=== PATIENT | male | born 1955 | race Caucasian/White ===

== ENCOUNTER 2022-10-01 11:24 | Inpatient (IN) ==
--- NOTE | 2022-10-01 12:04 | Emergency Department Note ---
Impression & Plan Elevated troponin I level, Coronary artery disease, Acute dyspnea, Heart palpitations ED Provider Note NAME: DASHAWN MORALES AGE: 67 SEX: M : 1955 ARRIVES VIA: Ambulance INFORMANT: Patient, ED PROVIDER(S): Arnaldo Vinson MD CHIEF COMPLAINT: Shortness of breath MEDICAL DECISION MAKING: Patient presents as an [employer] participant who did develop shortness of breath while ascending the second climb during the bike stage. IV was established blood was obtained and the patient did have a CK checked and was ordered IV fluids. The patient's blood work shows a normal white count 8 hemoglobin and platelet count. Kidney function is unremarkable. Initial troponin of 52. CK2 78 likely consistent with the patient's [employer] competition. COVID-negative. I did inform the patient of the findings. The patient was ordered the rest of a full dose aspirin as the patient did take aspirin this morning. The patient also lei s take Plavix. I did speak the on-call hospitalist service Dr. Hernandez and the patient was admitted to the medicine service. Patient has no acute symptoms at this time. Prior /Outside records reviewed: None Differential diagnosis: Reactive airway disease, pneumonia, pneumothorax, COPD, CHF, infections, cardiac ischemia, pulmonary embolism, dehydration among others were considered Diagnostics, as interpreted by me: ECG: Normal sinus rhythm, rate of 73, normal intervals, left axis deviation, T wave version in lead III no obvious ST elevations. Cardiac monitoring: An order was placed for continuous cardiac monitoring. The monitor shows a rate of 72 with sinus rhythm. Patient was placed on pulse oximetry Medical decision rules: HEART score Imaging studies: See below I informally reviewed the patient's chest x-ray which shows no obvious pneumothorax. HPI: Patient presents due to concern for shortness of breath. The patient was participating in the [employer] half today. The patient states that he was doing quite well but on the second climb of the bike portion which was greater than 35 miles in he did notice that his heart rate was elevated and did feel short of breath. Patient states that in total this lasted approximately 5 minutes in duration. Patient does have a known history of CAD status post stents states this does not feel similar to when this occurred. The patient denies any chest pains. The patient denies any nausea vomiting or diarrhea. The patient had completed a 1.1 mile swim as well as 35 mile bike prior to developing the shortness of breath. Patient denies any leg swelling or calf pain. The patient is from the [place] area but has been here for approximate 3 to 4 days. Patient denies any falls or trauma. Patient states that he decided to forego the rest of the race and then proceeded to get on his bike and returned it down the hill which he was climbing was brought to the emergency department. PAST MEDICAL HISTORY: CAD status post 3 stents Hypertension Hyperlipidemia PAST SURGICAL HISTORY: Status post coronary angioplasty Right shoulder rotator cuff repair SOCIAL HISTORY: Patient denies any alcohol tobacco or drug use. Patient does live in [place]. HOME MEDICATIONS: See Below ALLERGIES: See Below VITALS: See Below PHYSICAL EXAMINATION: GENERAL: NAD, non-toxic. EYE EXAM: Normal conjunctiva. PERRL, no anisocoria and EOM's grossly intact w/o pain. NECK: Supple, no nuchal rigidity, no adenopathy, non-tender. No signs of meningismus. FROM of the neck with good chin to chest and neck extension. No stridor. LUNGS: Clear to auscultation. Normal chest wall mechanics. HEART: NSR, no MRG. ABDOMEN: Abdomen soft, non-tender, no masses, no rebound or guarding. BACK: No CVA TTP. SKIN: No rashes and no bruising. UPPER EXTREMITIES: Upper extremities are grossly normal. LOWER EXTREMITIES: Grossly normal, no edema. Negative Homans' sign bilaterally NEURO EXAM: A&O x3, cranial nerves II-XII grossly intact, normal speech, moves all 4 extremities. Past Med/Surg History Medical History Chronic sinusitis Coronary artery disease GERD (gastroesophageal reflux disease) Surgical History History of arthroscopic knee surgery History of arthroscopy of shoulder Right meniscus Social History Smoking Status: Never smoker Hx Alcohol Use: Yes Alcohol type: wine Alcohol Intake Frequency: 4 or More x per/Week Alcohol Intake Frequency Comment: one small glass on most days of the week Feels Safe at Home: Yes Allergies Allergies Allergy/AdvReac Type Severity Reaction Status Date / Time Penicillins Allergy Severe Hives Unverified 10/01/22 17:07 Home Meds Home Medications Medication Instructions Recorded Confirmed aspirin 81 mg tablet 81 mg PO QAM 10/01/22 10/01/22 azelastine 137 mcg (0.1 %) nasal 1 spray intranasal BID 10/01/22 10/01/22 spray aerosol clopidogrel 75 mg tablet 75 mg PO QAM 10/01/22 10/01/22 famotidine 20 mg tablet 20 mg PO BID 10/01/22 10/01/22 fluticasone propionate 50 1 spray intranasal BID PRN allergy 10/01/22 10/01/22 mcg/actuation nasal spray,suspension rosuvastatin 20 mg tablet 20 mg PO HS 10/01/22 10/01/22 Results & Data (ED) Vital Signs Vital Signs - 24 hr 10/01/22 11:33 10/01/22 11:40 10/01/22 11:40 Temperature 37.2 C Temperature Source Oral Pulse Rate 73 73 Pulse Rate [Left Finger] Pulse Rhythm [Left Finger] Pulse Strength [Left Finger] Respiratory Rate 12 Respiratory Effort / Characteristics Non-Labored Respiratory Depth Normal Normal Respiratory Pattern Blood Pressure 139/71 Blood Pressure [Right Arm] Blood Pressure Mean 93 Blood Pressure Mean [Right Arm] Blood Pressure Position [Right Arm] Pulse Oximetry 97 Oxygen Delivery Method Room Air Room Air Sepsis New/Unexplained Change in Mental Status No Sepsis Action Taken by Nursing No Action Required 10/01/22 11:40 10/01/22 12:20 10/01/22 12:22 Temperature Temperature Source Pulse Rate 68 Pulse Rate [Left Finger] 71 Pulse Rhythm [Left Finger] Pulse Strength [Left Finger] Respiratory Rate 14 14 Respiratory Effort / Characteristics Respiratory Depth Respiratory Pattern Blood Pressure Blood Pressure [Right Arm] 139/71 Blood Pressure Mean Blood Pressure Mean [Right Arm] 93 Blood Pressure Position [Right Arm] Pulse Oximetry 97 98 98 Oxygen Delivery Method Room Air Room Air Room Air Sepsis New/Unexplained Change in Mental Status Sepsis Action Taken by Nursing 10/01/22 15:42 10/01/22 16:17 Temperature 36.8 C Temperature Source Oral Pulse Rate 61 Pulse Rate [Left Finger] 59 L Pulse Rhythm [Left Finger] Regular Pulse Strength [Left Finger] Normal Respiratory Rate 18 Respiratory Effort / Characteristics Non-Labored Respiratory Depth Normal Respiratory Pattern Regular Blood Pressure Blood Pressure [Right Arm] 109/77 Blood Pressure Mean Blood Pressure Mean [Right Arm] 87 Blood Pressure Position [Right Arm] Sitting Pulse Oximetry 96 Oxygen Delivery Method Room Air Sepsis New/Unexplained Change in Mental Status Sepsis Action Taken by Long-Term Medications Current Medication List: was personally reviewed by me Laboratory Data Attestation: I reviewed the patient's lab results. 10/01/22 11:15 10/01/22 13:20 Lab Results 10/01/22 10/01/22 10/01/22 Range/Units 11:15 11:15 13:20 WBC 9.24 (4.8-10.8) K/ul RBC 4.67 L (4.70-6.10) M/uL Hgb 15.7 (14.0-18.0) g/dl Hct 44.8 (42.0-52.0) % MCV 95.9 (80.0-100.0) fL MCH 33.6 (25.0-34.0) pg MCHC 35.0 (32.0-36.0) g/dL RDW Std Deviation 44.3 (36.4-46.3) fL RDW Coeff of Mariaelena 12.5 (11.5-14.5) % Plt Count 222 (130-400) K/uL MPV 10.5 (9.4-12.4) fL Immature Gran % (Auto) 0.4 % Neut % (Auto) 87.8 % Lymph % (Auto) 8.9 % Lucas % (Auto) 2.7 % Eos % (Auto) 0.0 % Baso % (Auto) 0.2 % Neut # (Auto) 8.11 H (1.40-6.50) K/uL Lymph # (Auto) 0.82 L (1.2-3.4) K/uL Lucas # (Auto) 0.25 (0.11-0.59) K/uL Eos # (Auto) 0.00 (0-0.50) K/uL Baso # (Auto) 0.02 (0-0.2) K/uL Immature Gran # (Auto) 0.04 (0.01-0.20) K/uL Sodium 140 TNP (136-145) mmol/L Potassium 3.9 TNP (3.5-5.1) mmol/L Chloride 108 H (98-107) mmol/L Carbon Dioxide 28 (21-32) mmol/L Anion Gap TNP BUN 18 (6-23) mg/dl Creatinine 1.09 (0.6-1.4) mg/dl Est Cr Clr Drug Dosing 63.0 ml/min Est GFR ( Amer) 81.0 ml/min Est GFR (Non-Af Amer) 69.9 ml/min BUN/Creatinine Ratio 16.5 (10-20) Glucose 80 (70-99(Fasting)) mg/dl Calcium 8.6 (8.6-10.3) mg/dl Total Bilirubin 0.9 (0.2-1.0) mg/dl AST 30 TNP (13-39) U/L ALT 26 (7-52) U/L Alkaline Phosphatase 35 (34-104) U/L Total Creatine Kinase 278 H (30-223) U/L Troponin I High Sens 52.7 H* (0-20) pg/ml Total Protein 6.7 (6.0-8.3) gm/dl Albumin 4.2 (3.4-5.0) gm/dl Globulin 2.5 (2.5-4.0) gm/dl Albumin/Globulin Ratio 1.7 (0.9-2) SARS-CoV-2, RNA, NAAT (NEGATIVE) 10/01/22 10/01/22 Range/Units 15:36 16:47 WBC (4.8-10.8) K/ul RBC (4.70-6.10) M/uL Hgb (14.0-18.0) g/dl Hct (42.0-52.0) % MCV (80.0-100.0) fL MCH (25.0-34.0) pg MCHC (32.0-36.0) g/dL RDW Std Deviation (36.4-46.3) fL RDW Coeff of Mariaelena (11.5-14.5) % Plt Count (130-400) K/uL MPV (9.4-12.4) fL Immature Gran % (Auto) % Neut % (Auto) % Lymph % (Auto) % Lucas % (Auto) % Eos % (Auto) % Baso % (Auto) % Neut # (Auto) (1.40-6.50) K/uL Lymph # (Auto) (1.2-3.4) K/uL Lucas # (Auto) (0.11-0.59) K/uL Eos # (Auto) (0-0.50) K/uL Baso # (Auto) (0-0.2) K/uL Immature Gran # (Auto) (0.01-0.20) K/uL Sodium (136-145) mmol/L Potassium (3.5-5.1) mmol/L Chloride (98-107) mmol/L Carbon Dioxide (21-32) mmol/L Anion Gap BUN (6-23) mg/dl Creatinine (0.6-1.4) mg/dl Est Cr Clr Drug Dosing ml/min Est GFR ( Amer) ml/min Est GFR (Non-Af Amer) ml/min BUN/Creatinine Ratio (10-20) Glucose (70-99(Fasting)) mg/dl Calcium (8.6-10.3) mg/dl Total Bilirubin (0.2-1.0) mg/dl AST (13-39) U/L ALT (7-52) U/L Alkaline Phosphatase (34-104) U/L Total Creatine Kinase (30-223) U/L Troponin I High Sens 67.7 H* D (0-20) pg/ml Total Protein (6.0-8.3) gm/dl Albumin (3.4-5.0) gm/dl Globulin (2.5-4.0) gm/dl Albumin/Globulin Ratio (0.9-2) SARS-CoV-2, RNA, NAAT NEGATIVE (NEGATIVE) Administered Medications Discontinued Medications Aspirin (Aspirin Chew 324 Mg) 243 mg PO NOW STA Stop: 10/01/22 14:32 Last Admin: 10/01/22 14:55 Dose: 243 mg Documented By: JESSICA Sodium Chloride (Nss 1000ml) 1,000 mls @ 999 mls/hr IV .Q1H1M YARIEL Stop: 10/01/22 13:30 Last Infusion: 10/01/22 13:33 Dose: 0 mls/hr Documented By: Admin: 10/01/22 12:27 Dose: 999 mls/hr Documented By: JESSICA Imaging Data Radiologist's Impression: Chest X-Ray 10/01/22 12:18 SINGLE VIEW CHEST CLINICAL HISTORY: Dyspnea. FINDINGS: An AP, portable, upright chest radiograph is obtained. No prior stud ies are available for comparison at the time of dictation. The heart is enlarged. The pulmonary vasculature is noncongested. The lungs and pleural spaces are clear. No pneumothorax is seen. The bony thorax is grossly intact. IMPRESSION: Cardiomegaly with no active disease in the chest. ACT 112: Negative or not required by law. Electronically signed by: Gaudencio Tovar M.D. 10/01/2022 1:19 PM Discharge Plan Visit Data Chief Complaint: Shortness of Breath/Dyspnea ED Provider: Arnaldo Vinson Discharge Problem: Elevated troponin I level, Coronary artery disease, Acute dyspnea, Heart palpitations Forms Stand Alone Forms: [facility] [employer] Prescriptions Prescriptions: No Action clopidogrel 75 mg tablet 75 mg PO QAM famotidine 20 mg Tablet 20 mg PO BID aspirin 81 mg Tablet 81 mg PO QAM azelastine 137 mcg (0.1 %) aerosol,spray 1 spray INTRANASAL BID fluticasone propionate 50 mcg/actuation spray,suspension 1 spray INTRANASAL BID PRN (Reason: allergy) rosuvastatin 20 mg tablet 20 mg PO HS Referrals Referrals: PCP,NO [Primary Care Provider] -
[2022-10-01] MEDS ORDERED: SODIUM CHLORIDE 0.9% 1000ML 1,000 ML IV SCH (12:30)
[2022-10-01 12:48] LABS: Basophils # (auto) 0.02 K/uL (0-0.2); Basophils % (auto) 0.2 %; Hematocrit (blood only) 44.8 % (42.0-52.0); Hemoglobin 15.7 g/dl (14.0-18.0); Immature Granulocytes # (auto) 0.04 K/uL (0.01-0.20); Immature Granulocytes % (auto) 0.4 %; Lymphocytes # (auto) 0.82 K/uL (1.2-3.4); Lymphocytes % (auto) 8.9 %; Mean Corpuscular Hemoglobin 33.6 pg (25.0-34.0); Mean Corpuscular Volume 95.9 fL (80.0-100.0); Mean Platelet Volume 10.5 fL (9.4-12.4); Monocytes # (auto) 0.25 K/uL (0.11-0.59); Monocytes % (auto) 2.7 %; Neutrophils # (auto) 8.11 K/uL (1.40-6.50); Neutrophils % (auto) 87.8 %; Platelet Count 222 K/uL (130-400); RDW Coefficient of Variation 12.5 % (11.5-14.5); RDW Standard Deviation 44.3 fL (36.4-46.3); Red Blood Count 4.67 M/uL (4.70-6.10); White Blood Count 9.24 K/ul (4.8-10.8)
--- NOTE | 2022-10-01 13:20 | XRay Report ---
SINGLE VIEW CHEST CLINICAL HISTORY: Dyspnea. FINDINGS: An AP, portable, upright chest radiograph is obtained. No prior studies are available for c omparison at the time of dictation. The heart is enlarged. The pulmonary vasculature is noncongested. The lungs and pleural spaces are clear. No pneumothorax is seen. The bony thorax is grossly intact. IMPRESSION: Cardiomegaly with no active disease in the chest. ACT 112: Negative or not required by law. Electronically signed by: Gaudencio Tovar M.D. 10/01/2022 1:19 PM
[2022-10-01 14:10] LABS: Alanine Aminotransferase 26 U/L (7-52); Albumin Globulin Ratio 1.7 (0.9-2); Albumin Level 4.2 gm/dl (3.4-5.0); Alkaline Phosphatase 35 U/L (34-104); BUN Creatinine Ratio 16.5 (10-20); Bilirubin,Total 0.9 mg/dl (0.2-1.0); Blood Urea Nitrogen 18 mg/dl (6-23); Calcium 8.6 mg/dl (8.6-10.3); Carbon Dioxide 28 mmol/L (21-32); Chloride 108 mmol/L (98-107); Creatine Kinase 278 U/L (30-223); Est GFR (Non-African American) 69.9 ml/min; Globulin 2.5 gm/dl (2.5-4.0); Glucose 80 mg/dl (70-99(Fasting)); Total Protein 6.7 gm/dl (6.0-8.3)
[2022-10-01 14:13] LABS: Troponin I High Sensitivity 52.7 pg/ml (0-20)
[2022-10-01 14:16] LABS: Potassium 3.9 mmol/L (3.5-5.1)
[2022-10-01] MEDS ORDERED: ASPIRIN CHEW 324 MG PO STA (14:31)
--- NOTE | 2022-10-01 15:11 | History & Physical Report ---
Date of Service October 01, 2022 Assessment & Plan (1) NSTEMI (non-ST elevated myocardial infarction): Plan: Unclear if type 1 or 2 on admission, no current chest pain or shortness of breath at rest, no WMA on TTE, occurred while doing [employer] all favor type 2 and will hold off IV heparin on admission Possible arrhythmia with palpitations and elevated HR although again occurred during [employer] therefore suspect just physiological response - continue to monitor for arrhythmia on telemetry Initially discussed discharge home if 2nd troponin downtrending but given significant rise > 20% will continue to trend overnight and have cardiology review patient tomorrow. Start IV heparin if HS-troponin > 100. D-dimer negative for pulmonary embolism ASA total 324mg PO, continue clopidogrel and rosuvastatin Lipid profile and HbA1C with AM labs (2) Coronary artery disease: Plan: ASA, clopidogrel, rosuvastatin Outpatient web kn[facility] Dr Douglas in [place], [place] (3) GERD (gastroesophageal reflux disease): Plan: Famotidine 20mg PO BID (4) Chronic sinusitis: Plan: Continue fluticasone and Azelastine nasal sprays (5) Heart palpitations: Plan VTE Prophylaxis - low risk Diet - Heart healthy, NPO after midnight Disposition - admit to PCU Admission and Anticipated Discharge Date Admission Date: October 01, 2022 History of Present Illness Chief Complaint: Shortness of breath, palpitations Primary Care Provider: NO PCP Kerry Bose is a 67 year old male who presents to the ER with shortness of breath and palpitations. This occurred while doing the [employer] cycling portion going up an incline. He is very fit usually and felt his shortness of breath was much more out of proportion to his fitness and given his history of coronary artery disease decided not to push through it and get checked in the ER. At this time his watch noted his heart rate around 169 bpm which did not return to his baseline as quick as he would have expected. He reports his resting heart rate is usually in the 40s. He denies any chest pain. His cardiac history is somewhat limited by patient recall. I do not have corresponding notes to check accuracy on admission. He had a similar presentation to this episode after the [place] marathon > 10 years ago with reduced exercise tolerance that improved after 90% blockage of his LAD was stented. 5 years ago he was having left sided chest discomfort and underwent PCI with two stents to RCA "tiny arteries" with no significant change in his symptoms. He does note a history of GERD. This was suspected by his ENT physician after workup for postnasal drip not suspected to be causing his swallowing difficulty. He does note heartburn while eating certain meals such as pasta. Currently under control with famotidine. Allergies Allergy/AdvReac Type Severity Reaction Status Date / Time Penicillins Allergy Severe Hives Unverified 10/01/22 17:07 Home Medications Medication Instructions Recorded Confirmed Type aspirin 81 mg tablet 81 mg PO QAM 10/01/22 10/01/22 History azelastine 137 mcg (0.1 %) nasal 1 spray intranasal BID 10/01/22 10/01/22 History spray aerosol clopidogrel 75 mg tablet 75 mg PO QAM 10/01/22 10/01/22 History famotidine 20 mg tablet 20 mg PO BID 10/01/22 10/01/22 History fluticasone propionate 50 1 spray intranasal BID PRN allergy 10/01/22 10/01/22 History mcg/actuation nasal spray,suspension rosuvastatin 20 mg tablet 20 mg PO HS 10/01/22 10/01/22 History Past Med/Surg History Medical History Chronic sinusitis Coronary artery disease GERD (gastroesophageal reflux disease) Surgical History History of arthroscopic knee surgery History of arthroscopy of shoulder Right meniscus Social History Smoking Status: Never smoker Hx Alcohol Use: Yes Alcohol type: wine Alcohol Intake Frequency: 4 or More x per/Week Alcohol Intake Frequency Comment: one small glass on most days of the week Hx Substance Use: No Preferred Language: French Reconciliation Coordinator Required: No Beliefs That Will Affect Care: None Current Living Situation: Significant Other Other Information That Helps Us Care for You: No Feels Safe at Home: Yes Safety Concerns: Feels Safe At This Time Review of Systems Review of Systems: All systems reviewed & are unremarkable except as noted in HPI & below Physical Exam Constitutional: WD/WN, vitals as above Eyes: + anicteric sclerae; normal pupil size ENMT: external ear and nose normal, oropharynx normal Respiratory: normal respiratory effort, lungs clear to auscultation Cardiovascular: RRR, no murmur, no edema Gastrointestinal (Abdomen): normal bowel sounds, soft, nontender, no hepatosplenomegaly Musculoskeletal: no cyanosis or clubbing, extremities motor strength 5/5 Skin: no rashes, warm and dry Neurologic: moves all extremities and awake; not confused Psychiatric: A+Ox3, euthymic affect Results & Data Results & Data Vital Signs (Past 12 Hours) Vital Signs Temp Pulse Pulse Resp BP BP Pulse Ox 10/01/22 12:22 71 14 139/71 98 10/01/22 12:20 68 14 98 10/01/22 11:40 97 10/01/22 11:40 10/01/22 11:40 37.2 C 73 12 139/71 97 10/01/22 11:33 73 O2 Del Method 10/01/22 12:22 Room Air 10/01/22 12:20 Room Air 10/01/22 11:40 Room Air 10/01/22 11:40 Room Air 10/01/22 11:40 Room Air 10/01/22 11:33 Laboratory Results Abnormal lab results 10/01/22 10/01/22 Range/Units 11:15 13:20 RBC 4.67 L (4.70-6.10) M/uL Neut # (Auto) 8.11 H (1.40-6.50) K/uL Lymph # (Auto) 0.82 L (1.2-3.4) K/uL Chloride 108 H (98-107) mmol/L Total Creatine Kinase 278 H (30-223) U/L Troponin I High Sens 52.7 H* (0-20) pg/ml Diagnostic Findings SINGLE VIEW CHEST CLINICAL HISTORY: Dyspnea. FINDINGS: An AP, portable, upright chest radiograph is obtained. No prior studies are available for comparison at the time of dictation. The heart is enlarged. The pulmonary vasculature is noncongested. The lungs and pleural spaces are clear. No pneumothorax is seen. The bony thorax is grossly intact. IMPRESSION: Cardiomegaly with no active disease in the chest. Medications Administered ER Medications Given: ASA 243 mg PO ECG Rate (beats per minute): 73 Rhythm: normal sinus Findings: + LAFB and + RBBB (incomplete) Comparison ECG Date: no prior available Code Status & VTE Plan Code Status Full VTE Prophylaxis Plan VTE Prophylaxis will be ordered: Yes PG Care Time/CCT Total # of Minutes Spent Total Time Spent with Patient: Total time spent is greater than 50% in coordination of care (as documented) at patient's floor/unit and/or counseling patient: Coding Level of Care Code 96716 INT INP/OBS CARE 3/75MIN Diagnoses NSTEMI (non-ST elevated myocardial infarction) I21.4 Coronary artery disease I25.10 GERD (gastroesophageal reflux disease) K21.9 Chronic sinusitis J32.9 Heart palpitations R00.2
--- NOTE | 2022-10-01 17:05 | XCELERA ---
[id number]
[2022-10-01 18:23] LABS: D Dimer 450 ug/L FEU (0-500); INR 1.1 (0.9-1.1); Partial Thromboplastin Ratio 0.8; Partial Thromboplastin Time 23.9 Seconds (21.0-31.0); Prothrombin Time 12.3 Seconds (9.0-12.0)
[2022-10-01] MEDS ORDERED: ACETAMINOPHEN 325 MG TAB PO PRN (19:08)
[2022-10-01] MEDS ORDERED: NITROGLYCERIN SL 0.4 MG/TAB TAB SL PRN (19:08)
[2022-10-01] MEDS ORDERED: ROSUVASTATIN CALCIUM 20 MG TAB PO SCH (21:00)
[2022-10-01] MEDS: FAMOTIDINE 20 MG TAB PO SCH (21:19)
[2022-10-01] MEDS: AZELASTINE HCL 0.1% NASAL 200 SPRAYS/27,400 MCG BTL NAE SCH (21:19)
[2022-10-02 06:35] LABS: Basophils # (auto) 0.04 K/uL (0-0.2); Basophils % (auto) 0.8 %; Eosinophils # (auto) 0.04 K/uL (0-0.50); Eosinophils % (auto) 0.8 %; Hematocrit (blood only) 39.8 % (42.0-52.0); Hemoglobin 13.8 g/dl (14.0-18.0); Lymphocytes # (auto) 1.76 K/uL (1.2-3.4); Lymphocytes % (auto) 33.6 %; Mean Corpuscular Hemoglobin 33.3 pg (25.0-34.0); Mean Corpuscular Hgb Conc 34.7 g/dL (32.0-36.0); Mean Corpuscular Volume 95.9 fL (80.0-100.0); Monocytes # (auto) 0.39 K/uL (0.11-0.59); Monocytes % (auto) 7.4 %; Neutrophils # (auto) 3.01 K/uL (1.40-6.50); Neutrophils % (auto) 57.4 %; Platelet Count 175 K/uL (130-400); RDW Coefficient of Variation 12.6 % (11.5-14.5); RDW Standard Deviation 44.4 fL (36.4-46.3); Red Blood Count 4.15 M/uL (4.70-6.10); White Blood Count 5.24 K/ul (4.8-10.8)
[2022-10-02 06:58] LABS: BUN Creatinine Ratio 22.4 (10-20); Calcium 8.7 mg/dl (8.6-10.3); Creatinine Clr Calc Pharmacy 80.9 ml/min; Est GFR (African American) 104.5 ml/min; Est GFR (Non-African American) 90.2 ml/min; Potassium 3.9 mmol/L (3.5-5.1)
[2022-10-02] MEDS: FAMOTIDINE 20 MG TAB PO SCH (08:01)
[2022-10-02] MEDS: AZELASTINE HCL 0.1% NASAL 200 SPRAYS/27,400 MCG BTL NAE SCH (08:02)
[2022-10-02 08:12] LABS: Estimated Average Glucose 123 mg/dl; Hemoglobin A1C 5.9 % (4.5-5.6)
[2022-10-02] MEDS ORDERED: ASPIRIN 81 MG ECTAB PO SCH (09:00)
[2022-10-02] MEDS ORDERED: CLOPIDOGREL BISULFATE 75 MG TAB PO SCH (09:00)
--- NOTE | 2022-10-02 09:30 | Discharge Summary ---
Date of Service October 02, 2022 Admission HPI Per Admitting Provider Kerry Bose is a 67 year old male who presents to the ER with shortness of breath and palpitations. This occurred while doing the [employer] cycling portion going up an incline. He is very fit usually and felt his shortness of breath was much more out of proportion to his fitness and given his history of coronary artery disease decided not to push through it and get checked in the ER. At this time his watch noted his heart rate around 169 bpm which did not return to his baseline as quick as he would have expected. He reports his resting heart rate is usually in the 40s. He denies any chest pain. His cardiac history is somewhat limited by patient recall. I do not have corresponding notes to check accuracy on admission. He had a similar presentation to this episode after the [employer] marathon > 10 years ago with reduced exercise tolerance that improved after 90% blockage of his LAD was stented. 5 years ago he was having left sided chest discomfort and underwent PCI with two stents to RCA "tiny arteries" with no significant change in his symptoms. He does note a history of GERD. This was suspected by his ENT physician after workup for postnasal drip not suspected to be causing his swallowing difficulty. He does note heartburn while eating certain meals such as pasta. Currently under control with famotidine. Admission Exam Per Admitting Provider Constitutional: WD/WN, vitals as above Eyes: + anicteric sclerae; normal pupil size ENMT: external ear and nose normal, oropharynx normal Respiratory: normal respiratory effort, lungs clear to auscultation Cardiovascular: RRR, no murmur, no edema Gastrointestinal (Abdomen): normal bowel sounds, soft, nontender, no hepatosplenomegaly Musculoskeletal: no cyanosis or clubbing, extremities motor strength 5/5 Skin: no rashes, warm and dry Neurologic: moves all extremities and awake; not confused Psychiatric: A+Ox3, euthymic affect Principal Diagnosis NSTEMI Discharge Exam Constitutional AOx3, Afebrile Respiratory CTA, no labored breathing Cardiovascular Regular rhythm, normal rate, S1 S2, no r/m/g, Radial pulses equal b/l. Gastrointestinal (Abdomen) nondistended/nontender/normoactive bowel sounds Musculoskeletal Moves all extremeties independently Skin No apparent rashes on exam. Warm and dry. Psychiatric Mood and affect appropriate. Strong medical insight. Discharge Data Allergies Allergy/AdvReac Type Severity Reaction Status Date / Time Penicillins Allergy Severe Hives Unverified 10/01/22 17:07 Consultations 10/01/22 14:29 ED Decision to Admit Stat 10/01/22 19:08 Consult Cardiology Routine Hospital Course (1) NSTEMI (non-ST elevated myocardial infarction): Pt came in with shortness of breath and heart rate increase during the [employer]. Found to have a troponin of 52 that hussein to 67, EKG was same as his baseline, and the decision was made to admit the patient with concern for NSTEMI. He had no events overnight and troponin trended down. In the morning, he was feeling well and cardiology consulted with him and recommended out patient follow up at his own senior microsoft consultant. All chronic condition medications were continued with at home regimens. (2) Coronary artery disease: (3) GERD (gastroesophageal reflux disease): (4) Chronic sinusitis: (5) Heart palpitations: Total Time Total Time Spent Total Time Spent (In Minutes): <30 Discharge Plan Discharge Items Patient Disposition: Home - Self-Care Reason For Visit: NSTEMI Discharge Diagnosis: Elevated troponin Activity: Resume your previous activity Non-emergency contact: Primary Care Provider and Capacity Planning Analyst Call non-emergency contact if: you have any medication questions and your symptoms worsen Follow-up/Referrals: PCP,NO [Primary Care Provider] - Diet: Heart Healthy Addtl Attending Provider Instructions: You were admitted to the hospital for elevated heart enzymes in association with shortness of breath. An echocardiogram (ultrasound of your heart) was performed which was overall normal. Your heart enzymes decreased without any further symptoms. It is most likely that your elevated heart enzymes and elevated heart rate were in association with your participation in the [employer] competition. Please bring this discharge summary with you to your next office appointment so that your provider can review it at that time. Medications: Your medication list has been reviewed and reconciled upon discharge to ensure accuracy and continuity of care. An updated list of all your medications is in cluded with your hospital discharge paperwork. Please review this list closely and make note of any changes to your medications. - No medication changes Follow up appointments: - Make a follow up appointment with your PCP within the next week. It is very important that you follow up with them shortly after discharge from the hospital. - You should also follow up with your senior microsoft consultant. A heart catheterization may be needed in the future since your past stents were relatively asymptomatic. However, no catheterization is needed during this hospitalization. - Keep all of your follow up appointments as already scheduled. If you cannot make an appointment, notify your provider. CONTACT YOUR PRIMARY CARE PROVIDER if you experience any of the following: - Difficulty following your treatment plan - Difficulty taking any of your medications CALL 911 OR GO TO THE EMERGENCY DEPARTMENT if you experience any of the follo wing: - Sudden, severe abdominal pain or nausea/vomiting - Severe chest pain or chest pain that radiates to your jaw or arm - Sudden, severe shortness of breath or difficulty breathing Pending Studies at Discharge: No Stand-Alone Forms: My [facility] [email or web address], Smoking Cessation Medications and DC Order Prescriptions: Continued clopidogrel 75 mg tablet 75 mg PO QAM famotidine 20 mg Tablet 20 mg PO BID aspirin 81 mg Tablet 81 mg PO QAM azelastine 137 mcg (0.1 %) aerosol,spray 1 spray INTRANASAL BID fluticasone propionate 50 mcg/actuation spray,suspension 1 spray INTRANASAL BID PRN (Reason: allergy) rosuvastatin 20 mg tablet 20 mg PO HS Discharge Orders: Discharge Order (Routine); Ordered 10/02/22 Ordered By: Steffanie Waters Admission Data Admit Date/Time: 10/01/22 16:28 Attending Provider: Niall Taylor Admit Provider: Aaron Hernandez Primary Care Provider: PCP,NO Other Providers: Aaron Hernandez ; Junior Vazquez Other Interventions: Discharge Summary Assessment (RN) Last Done: 10/02/22 12:35 Supervising Physician Co-Signing Physician Notes I personally examined the patient and verified all montes points of history and exam, discussed case, and agree with decision making with Kinza Sanchez MS4 and Dr Waters Feels good. Feels up to going home. Cardiology input appreciated. Troponin did not rise very high fortunately, and has trended down. Echo very reassuring. Vitals noted, in general he is awake and alert pleasant no distress. HEENT normocephalic atraumatic mucous membranes moist. Breathing unlabored no accessory muscle use good effort. Skin shows no rashes no pallor or icterus. Neuro without focal deficits. Chest painmild demand ischemiawith hindsight, the initial diagnosis of NSTEMI fortunately seems to have not been the casemore mild demand ischemia in the setting of high exertion, dehydration, and known highly likely stable coronary disease. Stable/safe for home, continue current med management, follow-up with PCP and primary senior microsoft consultant back homediscussed rationale for possible cath versus stress testingbut will obviously defer to his primary senior microsoft consultant discretion. Otherwise as above
--- NOTE | 2022-10-02 11:05 | Cardiology Consultation ---
Date of Consultation October 02, 2022 Assessment & Plan (1) Coronary artery disease: Patient is an experienced endurance athlete who noted subtle changes in his exercise tolerance and expected heart rates during local [employer] competition. On initial work-up had minimally elevated troponin which has since down trended. ECG, telemetry, echocardiogram reassuring. Suspicion for high risk ACS is relatively low and feel patient can be safely discharged to follow-up with his primary design technician back in [place]. Patient has had similar very subtle symptoms prompting prior PCI and additional ischemic testing likely warranted as an outpatient. Recommended patient refrain from additional exercise until further evaluation with home design technician. Continue home DAPT with aspirin, clopidogrel. Continue statin. We discussed potentially starting low-dose beta-renee but will defer. History of Present Illness Attending Physician: Niall Taylor, History of Present Illness Mr. Bose is a very pleasant 67 year-old man seen today due to exertional shortness of breath and minimally elevated HS TropI. Patient lives in [place], [place]. His design technician is Dr. Stanford Douglas in [facility]. Patient in [employer]. 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 Patient has a history of coronary artery disease. Previously underwent PCI to LAD >10 years ago when had subtle shortness of breath/change in exercise tolerance noted initially when completing [employer]. Approximately 5 years ago had 2 additional stents placed to his RCA in the setting of atypical left-sided chest pain which did not significantly change post stenting. Yesterday, noted that his baseline heart rates were more elevated, increased sweating than usual. During bike leg while biking uphill (35 miles and) reached his maximum heart rate faster than usual and felt more short of breath than expected. No chest pain. With stopping initially had some lightheadedness and his heart rate was slower to recover than normal. Here has been chest pain-free, feeling at baseline. Initial HS TropI minimally elevated at 52, peaked at 67. ECG showed sinus rhythm, old incomplete right bundle branch block, left anterior fascicular block. Echocardiogram EF 60% with no wall motion abnormalities, mild LVH, mildly dilated RV with normal function. Mild MR, trace AI. Family history: No family history premature CAD or SCD Social history: Non-smoker Allergies Allergy/AdvReac Type Severity Reaction Status Date / Time Penicillins Allergy Severe Hives Unverified 10/01/22 17:07 Home Medications Medication Instructions Recorded Confirmed Type aspirin 81 mg tablet 81 mg PO QAM 10/01/22 10/01/22 History azelastine 137 mcg (0.1 %) nasal 1 spray intranasal BID 10/01/22 10/01/22 History spray aerosol clopidogrel 75 mg tablet 75 mg PO QAM 10/01/22 10/01/22 History famotidine 20 mg tablet 20 mg PO BID 10/01/22 10/01/22 History fluticasone propionate 50 1 spray intranasal BID PRN allergy 10/01/22 10/01/22 History mcg/actuation nasal spray,suspension rosuvastatin 20 mg tablet 20 mg PO HS 10/01/22 10/01/22 History Patient History Medical History Chronic sinusitis Coronary artery disease GERD (gastroesophageal reflux disease) Surgical History History of arthroscopic knee surgery History of arthroscopy of shoulder Right meniscus Social History Smoking Status: Never smoker Hx Alcohol Use: Yes Alcohol type: wine Alcohol Intake Frequency: 4 or More x per/Week Alcohol Intake Frequency Comment: one small glass on most days of the week Hx Substance Use: No Preferred Language: Turkish Aerial Photogrammetrist Required: No Beliefs That Will Affect Care: None Current Living Situation: Significant Other Other Information That Helps Us Care for You: No Feels Safe at Home: Yes Safety Concerns: Feels Safe At This Time Review of Systems Review of Systems: All systems reviewed & are unremarkable except as noted in HPI & below Physical Exam Physical Exam: General: Comfortable HEENT: Sclerae anicteric Lungs: Clear to auscultation bilaterally, no crackles or wheezes Cardiac: Bradycardic, regular, 2 out of 6 holosystolic murmur heard best at the apex Vascular: 2+ radial, DP pulses. No bruits Abdomen: Soft, nontender Extremities: Well perfused, no peripheral edema Neuro: Nonfocal Psych: Alert orient x3, normal affect and mood Results & Data Vital Signs (Past 12 Hours) Vital Signs Temp Pulse Pulse Resp BP Pulse Ox O2 Del Method 10/02/22 08:00 48 L 10/02/22 07:40 98.1 F 51 L 16 103/61 97 Room Air 10/02/22 03:25 97.9 F 45 L 18 93/51 L 98 Room Air 10/01/22 23:20 53 L 10/01/22 23:16 97.9 F 51 L 18 94/59 L 95 Room Air PG Care Time/CCT Total # of Minutes Spent Total Time Spent with Patient: Total time spent is greater than 50% in coordination of care (as documented) at patient's floor/unit and/or counseling patient: Coding Level of Care Code 99631 INT INP/OBS CARE 2/55MIN Diagnoses Coronary artery disease I25.10
--- NOTE | 2022-10-02 12:35 | Communication Note ---
Date of Service: October 02, 2022 By CMS guidelines, a determination that the admission or continued stay is not medically necessary has been made by a member of the UR committee and a physici an for this hospital stay, therefore a Code 44 will be completed and the Inpatient admission will be changed to outpatient.
--- NOTE | 2022-10-02 17:45 | Billing Data ---
Date of Service October 02, 2022 Coding Level of Care Code 99010 IN/OBS DISCH 30 MIN/LESS
--- NOTE | 2022-10-03 22:31 | Electrocardiogram Report ---
Test Reason : Blood Pressure : / mmHG Vent. Rate : 073 BPM Atrial Rate : 073 BPM P-R Int : 192 ms QRS Dur : 120 ms QT Int : 420 ms P-R-T Axes : 066 -50 022 degrees QTc Int : 462 ms Normal sinus rhythm Right bundle branch block Left anterior fascicular block Abnormal ECG No previous ECGs available Confirmed by Junior Vazquez ([id number]) on 10/03/2022 10:31:36 PM Referred By: REFERRED SELF Confirmed By:Junior Vazquez
== END 2022-10-02 13:18 | disposition home or self-care (01) | DRG 311 ==
LOC: ED 11:24 → SUATTDRO 16:28 → 2E 16:28